=== PATIENT | female | born 1965 | race Caucasian/White ===

== ENCOUNTER → 2020-07-14 14:43 | Outpatient (BNVA) | payer OTHER, SELFPAY | PROVIDERS: Family Provider Registered Nurse; PCP Registered Nurse; Referring Provider Registered Nurse; Visit Provider Orthopaedic Surgery | DX: M25.531 Pain in right wrist (principal) | CPT/HCPCS: 73110 ==

== ENCOUNTER 2020-07-22 12:45 | Outpatient (CLI) | payer OTHER, SELFPAY ==
--- NOTE | 2020-07-22 12:56 | MR_ITS ---
WS: [id number] MRI RIGHT WRIST without CONTRAST. COMPARISON: Wrist radiograph 07/14/2020 Multiplanar, multisequence imaging is performed without contrast. No acute fractures identified. There is a very small amount of marrow edema in the distal ulna at the site of the TFCC attachment. There is also small amount of fluid in the distal radial ulnar joint. I ncreased signal of the imaged TFCC at the site of the ulnar fovea. Carpal rows are intact. There are a few small cystic areas in the capitate scaphoid and lunate. MR/MR wrist RT wo con* [id number] IMPRESSION: 1. Mild narrowing and small amount of fluid in the distal radial ulnar joint. Increased signal in the triangular fibrocartilage complex suggesting a partial tear. 2. No fractures.
== END 2020-07-22 12:46 | disposition home or self-care (01) ==
LOC: RADWPI 12:51
PROVIDERS: PCP Registered Nurse; Visit Provider Orthopaedic Surgery
DX: M25.531 Pain in right wrist (principal)
CPT/HCPCS: 73221

== ENCOUNTER 2020-07-23 14:54 | Outpatient (CLI) | payer OTHER, SELFPAY | END 2020-07-23 14:55 | disposition home or self-care (01) | LOC: SPT 14:55 | PROVIDERS: PCP Registered Nurse; Visit Provider Orthopaedic Surgery | DX: Z46.89 Encounter for fitting and adjustment of other specified devices (principal); M25.531 Pain in right wrist | CPT/HCPCS: L3908 ==

== ENCOUNTER → 2022-08-16 14:09 | Outpatient (BNVA) | payer OTHER, SELFPAY | PROVIDERS: PCP Registered Nurse; Referring Provider Nurse Practitioner Family; Visit Provider Student in an Organized Health Care Education/Training Program | DX: S83.242A Other tear of medial meniscus, current injury, left knee, initial encounter (principal); X58.XXXA Exposure to other specified factors, initial encounter | CPT/HCPCS: 73560; 73565 ==

== ENCOUNTER 2022-09-21 08:14 | Day surgery (SDC) | payer OTHER, SELFPAY ==
[2022-09-20 11:31] VITALS: BMI 20.7
[2022-09-21] VITALS (11 sets, daily range): BP systolic 103–129; BP diastolic 62–93; PULSE 69–84; RESP 14–22; TEMP 36.1–37.1; O2SAT 96–100
[2022-09-21] MEDS: acetaminophen 1,000 MG/100 ML PIGGYBACK 400 MG IV (08:58)
[2022-09-21] MEDS: sodium chloride 0.9% 1,000 ML 30 ML IV (08:58)
[2022-09-21] MEDS: scopolamine 1.5 Patch 1 PATCH TRANSDERMA (08:59)
[2022-09-21] MEDS: ketorolac 30 mg/mL INJ IVP (08:59)
--- NOTE | 2022-09-21 09:03 | P.HP_ITS ---
Same Day Surgery H&P Indication for Procedure/HPI DATE OF PROCEDURE: September 21, 2022 CHIEF COMPLAINT/INDICATIONFOR SURGICAL PROCEDURE: Left knee medial meniscus tear PREOP DIAGNOSIS: left knee medial meniscus tear PLANNED PROCEDURE: Operation Date: 09/21/22 10:40 Proposed Procedures p Knee Arthroscopy Knee Arthroscopy w/ Medial Menisectomy 49231,S83.242A(Left) - Ravindra Colfax, DO Unchanged HPI since since most recent office visit on 08/16/2022 Medications/Allergies* Home Medications Medication Instructions Recorded Confirmed Type cetirizine 10 mg tablet (Zyrtec) 10 mg PO DAILY PRN Allergy Symptoms 07/14/20 09/20/22 History buspirone 10 mg tablet 10 mg PO BID 08/16/22 09/20/22 History ergocalciferol (vitamin D2) 1,250 1,250 mcg PO DAILY 08/16/22 09/20/22 History mcg (50,000 unit) capsule meloxicam 15 mg tablet 15 mg PO DAILY 08/16/22 09/21/22 History Allergies/Adverse Reactions Allergy/AdvReac Type Severity Reaction Status Date / Time codeine Allergy ADR-Vomitin Verified 09/20/22 11:28 g tramadol [From Ultram] Allergy ADR-Vomitin Verified 09/20/22 11:28 g Current Medications: Generic Name Dose Route Start Last Admin Trade Name Freq PRN Reason Stop Dose Admin Sodium Chloride 1,000 mls @ 30 mls/hr 09/21/22 08:45 09/21/22 08:58 Sodium Chloride 0.9% IV 09/22/22 08:44 30 mls/hr .Q24H TANA Administration Scopolamine 1 patch 09/21/22 08:33 09/21/22 08:59 Scopolamine 1.5 Patch TRANSDERMA 1 patch ONCE PRN Administration anesthetic related nausea Pertinent Exam Findings alert, oriented x 3, operative site marked and procedure specific exam findings There is discrete tenderness to palpation over the medial compartment of the left knee. There is pain that is reproduced with McMurrays test, but no palpable click. There is no tenderness with patella mobilization or over the lateral compartment. There is a negative patella grind maneuver. There is a negative lachmans test and both knees are stable to varus and valgus stress testing. Recommendations Surgery/Procedure today Other Plans: Plan to proceed with left knee diagnostic and surgical arthroscopy with partial medial meniscectomy. We detailed out the ins and outs of procedure she understands the risk benefits complication alternatives with surgical nonsurgical treatment options. Understanding risk of surgery she agrees to proceed with surgical intervention all questions answered. Coding Level of Care Code Acute Code for Chg Fwd Diagnoses
--- NOTE | 2022-09-21 09:12 | ANES.PREANE2 ---
Pre-Anesthetic Assessment Height/Weight: Height 1.52 m Weight 48.081 kg Temp Pulse Resp BP Pulse Ox O2 Del Method 98.7 F 79 18 121/84 100 Room Air 09/21/22 08:43 09/21/22 08:43 09/21/22 08:43 09/21/22 08:43 09/21/22 08:43 09/21/22 08:43 Preop Diagnosis: left knee medial meniscus tear Operation Date: 09/21/22 10:40 Proposed Procedures p Knee Arthroscopy Knee Arthroscopy w/ Medial Menisectomy 83954,S83.242A(Left) - Ravindra Sotelo DO Familial anesthetic complications: None Was Beta Kevni taken within 24 hours: N/A Was Clonidine taken within 24 hours: N/A Last intake: Intake Last Liquid Date 09/20/22 Last Liquid Time 22:30 Last Solid Date 09/20/22 Last Solid Time 18:00 Social Tobacco and No alcohol Exam alert, oriented x 3, clear to auscultation bilaterally and regular rate & rhythm Airway Mallampati: Class III Dentition: full History/ROS No significant complaints Anesthetic Plan ASA status: 3 Anesthesia: General Risk of > 500 ml blood loss (7ml/kg in children): Yes, adequate IV access and fluids planned Medications/Allergies Home Medications Medication Instructions Recorded Confirmed Last Taken Type cetirizine 10 mg tablet (Zyrtec) 10 mg PO DAILY PRN Allergy Symptoms 07/14/20 09/20/22 09/20/22 04:30 History buspirone 10 mg tablet 10 mg PO BID 08/16/22 09/20/22 09/18/22 History ergocalciferol (vitamin D2) 1,250 1,250 mcg PO DAILY 08/16/22 09/20/22 09/17/22 History mcg (50,000 unit) capsule meloxicam 15 mg tablet 15 mg PO DAILY 08/16/22 09/21/22 Unknown History hydrocodone 5 mg-acetaminophen 325 1 tab PO Q6H PRN pain 7 days #28 09/21/22 Unknown Rx mg tablet tabs Allergies Allergy/AdvReac Type Severity Reaction Status Date / Time codeine Allergy ADR-Vomitin Verified 09/20/22 11:28 g tramadol [From Ultram] Allergy ADR-Vomitin Verified 09/20/22 11:28 g Current Medications Generic Name Dose Route Start Last Admin Trade Name Freq PRN Reason Stop Dose Admin Sodium Chloride 1,000 mls @ 30 mls/hr 09/21/22 08:45 09/21/22 08:58 Sodium Chloride 0.9% IV 09/22/22 08:44 30 mls/hr .Q24H TANA Administration Scopolamine 1 patch 09/21/22 08:33 09/21/22 08:59 Scopolamine 1.5 Patch TRANSDERMA 1 patch ONCE PRN Administration anesthetic related nausea Data Anesthesia Cardiac Studies: No Data to Display
[2022-09-21] MEDS: ceFAZolin 2,000 MG in sodium chloride 0.9% (plus) 50 ML 100 MG IV (10:02)
[2022-09-21] MEDS: lidocaine-epi 2% 20 mL INJ INJECTION ×2 (10:17→10:44)
--- NOTE | 2022-09-21 10:57 | PM.OP2 ---
Brief Operative Note Date of procedure: 09/21/22 Pre-op diagnosis: Left knee medial meniscus tear Post-op diagnosis: same (And chondromalacia and extensive synovitis) Procedure Done: 1. Left knee diagnostic and surgical arthroscopy partial medial meniscectomy 2. left knee diagnostic and surgical arthroscopy extensive synovectomy of medial, lateral and patellofemoral compartments 3. Left knee diagnostic and surgical arthroscopy medial compartment chondroplasty Surgeon: Ravindra Sotelo Estimated blood loss (mL): 2 Complications: None Post-op Plan: Patient taken to PACU in stable condition recovering well. Will receive appropriate discharge instructions as well as pain medication postoperatively. We will follow-up with me in the office in 2 weeks. Recommend aspirin for blood clot prevention postoperatively. Patient understands with any questions or concerns and contact the office Condition: stable Disposition: same day Coding Level of Care Code Acute Code for Lolis Shea
--- NOTE | 2022-09-21 10:59 | P.PCN_ITS ---
PACU note Narrative: Patient taken to PACU in stable condition recovering well pain controlled. Patient is able to wiggle toes plantarflex dorsiflex ankle sensation intact light touch distally dressing on in place clean dry and intact toes warm well- perfused brisk cap refill less than 2 seconds distal pulses palpable Exam: awake Disposition: discharged
--- NOTE | 2022-09-21 10:59 | P.OP_ITS ---
Operative Report Date of procedure: September 21, 2022 Pre-op diagnosis: Preop Diagnosis left knee medial meniscus tear Procedure: Post-op diagnosis: Left knee lateral meniscus tear Left knee extensive synovitis Left knee Medial chondromalacia Procedure done: 1.? Left knee diagnostic and surgical arthroscopy partial medial meniscectomy 2. left knee diagnostic and surgical arthroscopy extensive synovectomy of medial, lateral and patellofemoral compartments 3.? Left knee diagnostic and surgical arthroscopy medial compartment chondroplasty Surgeon: Ravindra Soetlo DO Estimated blood loss: 2 Tourniquet: No tourniquet was used IV fluids: See anesthesia record Complications: None Findings: See operative report narrative Condition: stable Disposition: same day Brief History: Patient is a 57-year-old female with left knee pain.? Patient has failed conservative treatment who has been worked up for left knee pain in the outpatient setting.?MRI findings consistent with tear of the medial meniscus. talked in the office about treatment options patient would like to proceed with a left knee diagnostic and surgical arthroscopy with partial medial meniscectomy..? Patient understand the ins and outs of the procedure the risk benefits complication alternatives to treatment options.? Understanding risk of surgery they agree to proceed with surgical intervention.? Patient understand this may not provide patient with complete symptomatic relief of? pain as patient does have some underlying arthritis.? Understanding this and patient agree to proceed with surgical intervention all questions answered. Procedure: Patient seen and evaluated in the preoperative holding area.? Consent was revie wed and signed with patient.? Correct extremity was then marked.? Patient seen evaluated Anesthesia Department once cleared for surgery patient was taken back to the operative suite.? Patient was transported onto the OR table in supine position.? All bony prominences well-padded patient was appropriate secured to the bed.? Once appropriately anesthetized a nonsterile tourniquet was applied to the left thigh.? The?left?lower extremity was then prepped and draped in standard orthopedic fashion.? Final timeout performed.? Patient received appropriate preoperative antibiotics. Patient received local anesthetic of lidocaine with epinephrine into the joint as well as around the portal sites.? No tourniquet was inflated A standard 2 portal vertical incision diagnostic and surgical arthroscopy of the left knee was performed in standard fashion.? Small stab incision made in the inferolateral portal introduced trocar and arthroscope into the suprapatellar pouch.? Suprapatellar pouch was subsequently visualized and found to have significant synovitis but no loose bodies.? Patient had noticeable significant inflamed infrapatellar fat pad and thickening hypertrophic within the patellofemoral compartment.? ?The medial gutter was free of loose bodies I then introduced the arthroscope into the medial compartment.? Within the medial compartment I then established my inferior medial working portal utilizing spinal needle outside in technique.? Once established I then visualized our articular cartilage of the medial compartment with a valgus stress.? Patient was found to have grade 2-3 chondromalacia throughout the medial compartment.? Next I inspected the meniscus.? With an arthroscopic probe was utilized to visual? all aspects of the meniscus.? Meniscal root was found to be intact.? Meniscus was found to be torn at the body to posterior horn junction.? I then subsequently introduced a basket forceps as well as arthroscopic shaver to perform a partial medial meniscectomy to stable meniscal tissue and then utilized a thermal wand to anneal the edges.? Next, I then performed a synovectomy of the medial compartment.? Given patient's chondromalacia there was areas of unstable articular cartilage and I subsequently performed a chondroplasty with arthroscopic shaver and thermal wand.? This completed medial compartment work. Next a introduced the arthroscope to the intercondylar notch.? PCL and ACL were intact. patient had significant thickening of the infrapatellar fat pad spanning into the medial and lateral compartments.? I then performed an extensive synovectomy with the arthroscopic shaver of the patellofemoral medial and lateral compartments as well as the intercondylar notch. Advance the scope into the retrocruciate space and no loose bodies were found. Next I introduced the arthroscope into the lateral compartment the lateral compartment was found to have grade?1 chondromalacia.??Lateral meniscus was found to intact with no tear.? This completed work in the lateral compartment.? I performed a synovectomy of the lateral compartment. Next of the arthroscope was placed into the lateral gutter and this was free of loose bodies.? Finally I reintroduced the arthroscope into the patellofemoral compartment.? The patellofemoral was found to have grade 1?2 chondromalacia of the patellofemoral compartment. ?At this point I utilized arthroscopic shaver as well as thermal wand to perform extensive synovectomy of the patellofemoral compartment.? ? This completed my work of the patellofemoral space.? ? I then switch my portal sites to the medial working portal.? Completed the rest of my synovectomy and the rest of my examination arthroscopy was normal. Tourniquet was deflated hemostasis satisfactory.? All fluid was suctioned from the joint.?? All instruments were withdrawn.? Portal sites were closed with interrupted nylon suture.? portal sites were then covered with with Xeroform 4 x 4's ABD Curlex and Marky wrap.? Patient was then subsequently awakened from anesthesia and taken to PACU in stable condition. Disposition: Patient taken to PACU in stable condition recovering well.? Will receive appropriate discharge structure as well as pain medication postoperatively as well as? DVT prophylaxis.we will have patient follow-up with us in the office in 2 weeks.? We will weightbearing as tolerated to the left lower extremity.? Patient understands and agrees with current plan.? All questions answered.
--- NOTE | 2022-09-21 15:56 | ANE.PACU2 ---
Inpatient post-anesthesia follow up: Airway intact: Yes Vital signs: Temperature 98.2 F Pulse Rate 79 Respiratory Rate 18 Blood Pressure 122/69 Pulse Oximetry 97 Oxygen Delivery Me thod Room Air Oxygen Flow Rate Fraction of Inspir ed Oxygen Hydration adequate: Yes Nausea and vomiting: Yes Pain level: 1 Mental status: Baseline
== END 2022-09-21 12:05 | disposition home or self-care (01) ==
PROVIDERS: PCP Registered Nurse; Visit Provider Student in an Organized Health Care Education/Training Program
PROC: (CPT 29870; principal; 2022-09-21 10:40)
DX: S83.242A Other tear of medial meniscus, current injury, left knee, initial encounter (principal); X58.XXXA Exposure to other specified factors, initial encounter
CPT/HCPCS: 29876; 29881; J0131; J0690; J1100; J1885; J2370; J2405; J2704; J2795; J3010; J7030

== ENCOUNTER 2023-08-10 09:13 | Outpatient (CLI) | payer OTHER, SELFPAY ==
--- NOTE | 2023-08-10 09:30 | MM_ITS ---
WS: [id number] SCREENING DIGITAL TOMOSYNTHESIS MAMMOGRAM WITH CAD HISTORY: SCREENING COMPARISON: 05/21/2016 Bilateral CC and MLO with tomosynthesis views submitted. Synthetic mammography reviewed. Computer aid ed detection analyzed. Breast composition: The breasts are extremely dense, which lowers the sensitivity of mammography. No suspicious masses, microcalcifications or architectural distortion. IMPRESSION: MM/[place] [id number] BI-RADS: 1-Negative FOLLOW UP: 1 Year Follow-up
== END 2023-08-10 09:14 | disposition home or self-care (01) ==
LOC: MOBLMAM 09:20
PROVIDERS: PCP Nurse Practitioner Family; Visit Provider Nurse Practitioner Family
DX: Z12.31 Encounter for screening mammogram for malignant neoplasm of breast (principal)
CPT/HCPCS: 77063; 77067

== ENCOUNTER 2024-08-15 08:56 | Outpatient (CLI) | payer OTHER, SELFPAY ==
--- NOTE | 2024-08-15 09:20 | MM_ITS ---
WS: [id number] Bilateral screening 3D tomosynthesis digital mammogram, 08/15/2024 9:26 AM Clinical Data: SCREENING Comparison: 08/10/2023, 05/21/2016, 09/15/2012. Findings: No spiculated masses or clustered calcifications are seen. There are no secondary signs of carcinoma. MM/MM scr BI tomosynthesis [id number] Impression: Negative bilateral mammogram unchanged. Recommend annual screening mammograms. BIRADS: 1 - Negative FOLLOW UP: 1 Year Follow-up DENSITY: The breasts are extremely dense, which lowers the sensitivity of mammo graphy. The CAD frickertron checker was used
== END 2024-08-15 08:57 | disposition home or self-care (01) ==
PROVIDERS: PCP Nurse Practitioner Family; Visit Provider Nurse Practitioner Family
DX: Z12.31 Encounter for screening mammogram for malignant neoplasm of breast (principal); R92.343 Mammographic extreme density, bilateral breasts
CPT/HCPCS: 77063; 77067